=== PATIENT | female | born 1970 | race Caucasian/White ===

== ENCOUNTER → 2016-11-21 | Outpatient (CLI) | payer BC ==
--- NOTE | 2016-11-21 13:59 | MM ---
Reason for exam: screening (asymptomatic). Last mammogram was performed 3 years and 2 months ago. History: Family history of breast cancer in maternal grandmother. Benign cyst aspiration of the left breast, 1989. Took hormonal contraceptives for 10 years beginning at age 18. Physical Findings: A clinical breast exam by your physician is recommended on an annual basis and results should be correlated with mammographic findings. MG Screening Mammo w CAD Bilateral CC and MLO view(s) were taken. Prior study comparison: November 19, 2015, mammogram, performed at [facility]. November 16, 2015, mammogram, performed at [facility]. The breast tissue is heterogeneously dense. This may lower the sensitivity of mammography. There is no discrete abnormality. No significant changes when compared with prior studies. ASSESSMENT: Negative, BI-RAD 1 RECOMMENDATION: Routine screening mammogram of both breasts in 1 year.
== END | disposition home or self-care (01) ==
LOC: RADMAMWWP 08:41
PROVIDERS: ATTEND Obstetrics & Gynecology
DX: Z12.31 Encounter for screening mammogram for malignant neoplasm of breast (principal); Z80.3 Family history of malignant neoplasm of breast

== ENCOUNTER → 2017-12-18 | Outpatient (CLI) | payer BC ==
--- NOTE | 2017-12-20 12:01 | MM ---
Reason for exam: screening (asymptomatic). Last mammogram was performed 1 year and 1 month ago. History: Patient is postmenopausal. Family history of breast cancer in maternal grandmother. Benign cyst aspiration of the left breast, 1989. Took hormonal contraceptives for 10 years beginning at age 18. Physical Findings: A clinical breast exam by your physician is recommended on an annual basis and results should be correlated with mammographic findings. MG 3D Screening Mammo W/Cad Bilateral CC and MLO view(s) were taken. Prior study comparison: November 21, 2016, bilateral MG screening mammo w CAD. November 19, 2015, mammogram, performed at [facility]. The breast tissue is heterogeneously dense. This may lower the sensitivity of mammography. No significant changes when compared with prior studies. ASSESSMENT: Negative, BI-RAD 1 RECOMMENDATION: Routine screening mammogram of both breasts in 1 year.
== END | disposition home or self-care (01) ==
LOC: RADMAMWWP 09:00
PROVIDERS: ATTEND Obstetrics & Gynecology
DX: Z12.31 Encounter for screening mammogram for malignant neoplasm of breast (principal)
CPT/HCPCS: 77063; 77067

== ENCOUNTER → 2019-05-27 | Outpatient (CLI) | payer BC ==
--- NOTE | 2019-05-28 10:57 | MM ---
Reason for exam: screening (asymptomatic). Last mammogram was performed 1 year and 5 months ago. History: Patient is postmenopausal. Benign cyst aspiration of the left breast, 1989. Took hormonal contraceptives for 10 years beginning at age 18. Physical Findings: A clinical breast exam by your physician is recommended on an annual basis and results should be correlated with mammographic findings. MG 3D Screening Mammo W/Cad Bilateral CC and MLO view(s) were taken. Prior study comparison: December 18, 2017, bilateral MG 3d screening mammo w/cad. November 21, 2016, bilateral MG screening mammo w CAD. The breast tissue is heterogeneously dense. This may lower the sensitivity of mammography. No suspicious abnormality. No significant changes when compared with prior studies. ASSESSMENT: Negative, BI-RAD 1 RECOMMENDATION: Routine screening mammogram of both breasts in 1 year.
== END | disposition home or self-care (01) ==
LOC: RADMAMWWP 08:17
PROVIDERS: ATTEND Obstetrics & Gynecology
DX: Z12.31 Encounter for screening mammogram for malignant neoplasm of breast (principal)
CPT/HCPCS: 77063; 77067

== ENCOUNTER → 2020-02-26 | Day surgery (SDC) | payer BC ==
[2020-02-24 13:38] VITALS: BMI 29.8
[~2020-02-26] MED LIST: LACTATED RINGERS 1,000 ML IV ONE; LACTATED RINGERS 1,000 ML IV SCH; LIDOCAINE 1% (10MG/ML) FOR IV START INTRADERMA ONE; PROPOFOL 10 MG/ML 20 ML VIAL IV ONE
[2020-02-26 08:45] VITALS: TEMP 98
--- NOTE | 2020-02-26 09:03 | P.GSHP ---
History of Present Illness H&P Date: 02/26/20 Chief Complaint: Screening colonoscopy This a 50-year-old female who presents today for screening colonoscopy. Patient denies a significant GI complaints. Past Medical History Past Medical History: Hyperlipidemia, Musculoskeletal Disorder, Pneumonia Additional Past Medical History / Comment(s): HERNIATED DISC. HX FX RT ANKLE. History of Any Multi-Drug Resistant Organisms: None Reported Past Surgical History: Back Surgery, Orthopedic Surgery, Uterine Ablation Additional Past Surgical History / Comment(s): EXC WISDOM TEETH. ORIF RT ANKLE. EPIDURAL INJ. LASIK FRANK EYES. 07-28-15 LUMBAR FUSION L4-L5 Past Anesthesia/Blood Transfusion Reactions: No Reported Reaction Additional Past Anesthesia/Blood Transfusion Reaction / Comment(s): ADOPTED, NO KNOWN FAM HX. MILD CLAUSTROPHOBIA Smoking Status: Never smoker - Past Family History Mother Family Medical History: Unable to Obtain Additional Family Medical History / Comment(s): ADOPTED Father History Unknown: Yes Additional Family Medical History / Comment(s): PT WAS ADOPTED. Medications and Allergies Home Medications Medication Instructions Recorded Confirmed Type Ascorbic Acid [Vitamin C] 500 mg PO DAILY 02/24/20 02/24/20 History Cholecalciferol [Vitamin D3 (25 1,000 unit PO DAILY 02/24/20 02/24/20 History Mcg = 1000 Iu)] Multivitamins, Thera [Multivitamin 1 tab PO DAILY 02/24/20 02/24/20 History (formulary)] lisinopriL [Zestril] 20 mg PO DAILY 02/24/20 02/24/20 History Allergies Allergy/AdvReac Type Severity Reaction Status Date / Time No Known Allergies Allergy Verified 02/24/20 13:28 Surgical - Exam Vital Signs Temp Pulse Resp BP Pulse Ox 98.0 F 76 18 170/67 98 02/26/20 08:44 02/26/20 08:44 02/26/20 08:44 02/26/20 08:44 02/26/20 08:44 - General well developed, well nourished, no distress - Eyes PERRL - ENT normal pinna - Neck no masses - Respiratory normal expansion - Cardiovascular Rhythm: regular - Abdomen Abdomen: soft, non tender Assessment and Plan Assessment: We'll perform screening colonoscopy
--- NOTE | 2020-02-26 09:18 | P.OP ---
Date of Procedure: 02/26/20 Preoperative Diagnosis: Screening colonoscopy Postoperative Diagnosis: Normal colonoscopy Procedure(s) Performed: Colonoscopy Surgeon: Adriel Conrad Pathology: none sent Condition: stable Disposition: PACU Description of Procedure: The patient's placed on the endoscopy table in the lateral position. She received IV sedation. Digital rectal exam performed abnormalities. The flexible colonoscope was then placed patient anus and passed throughout the entire colon. The ileocecal valve was incised. The cecum, ascending and transverse colon appeared normal. The descending and sigmoid colon appeared normal. Scope was brought back the rectum and this appeared normal. Scope was withdrawn for patient.
[2020-02-26 09:27] VITALS: RESP 16
[2020-02-26 09:36] VITALS: BP 136/84; PULSE 71
== END ==
LOC: ORWHC2ENDO 08:23
PROVIDERS: ATTEND Surgery
DX: Z12.11 Encounter for screening for malignant neoplasm of colon (principal); I10 Essential (primary) hypertension; E78.5 Hyperlipidemia, unspecified; Z87.01 Personal history of pneumonia (recurrent); Z98.890 Other specified postprocedural states; Z98.818 Other dental procedure status; Z98.41 Cataract extraction status, right eye; Z98.42 Cataract extraction status, left eye; Z98.1 Arthrodesis status; Z79.899 Other long term (current) drug therapy
CPT/HCPCS: 81025; G0121; J2704; 45378

== ENCOUNTER → 2020-09-28 | Outpatient (CLI) | payer BC ==
--- NOTE | 2020-09-28 11:35 | BD ---
EXAMINATION TYPE: Axial Bone Density DATE OF EXAM: 09/28/2020 COMPARISON: NONE CLINICAL HISTORY: Postmenopausal female. Height: 176.1 Weight: 64 FRAX RISK QUESTIONS: Alcohol (3 or more units per day): no Family History (Parent hip fracture): unsure Glucocorticoids (More than 3mos): no (Ex: prednisone, prednisolone, methylprednisolone, dexamethasone, and hydrocortisone). History of Fracture in Adulthood: yes Secondary Osteoporosis: 1. Type 1 Diabetes: no 2. Hyperthyroidism: no 3. Menopause before 45: no 4. Malnutrition: no 5. Chronic liver disease: no Rheumatoid Arthritis: no Current Tobacco Use: no RISK FACTORS HISTORY OF: Surgery to Spine/Hip(right/left)/Wrist (right/left): l spine 2015 Active: yes Diet low in dairy products/other sources of calcium: yes Postmenopausal woman: age 47 Lost more than 2 inches in height since high school: no MEDICATIONS: Additional History: EXAM MEASUREMENTS: Bone mineral densitometry was performed using the [employer] System. Bone mineral density about the R hip (g/cm2): 0.965 Bone mineral density about the L hip (g/cm2): 1.003 T Score values are as follows: -----R Neck: -0.5 -----L Neck: -0.3 -----R Total: 0.2 -----L Total: 0.8 Bone mineral density : baseline Bone mineral density about the L Wrist (g/cm2): 0.631 T Score values are as follows: -----Dist. R+U: -1.2 -----Prox. R+U: -0.1 -----Radius total: -0.7 Bone mineral density : baseline IMPRESSION: Normal (Values between +1 and -1 indicate normal bone mass). Consider repeating this study in 5 year s or sooner if there is some new clinical indication. NOTE: T-SCORE=SD OF THE YOUNG ADULT MEAN.
--- NOTE | 2020-09-29 10:33 | MM ---
Reason for exam: screening (asymptomatic). Last mammogram was performed 1 year and 4 months ago. History: Patient is postmenopausal. Benign cyst aspiration of the left breast, 1989. Took hormonal contraceptives for 10 years beginning at age 18. Physical Findings: A clinical breast exam by your physician is recommended on an annual basis and results should be correlated with mammographic findings. MG 3D Screening Mammo W/Cad Bilateral CC and MLO view(s) were taken. Prior study comparison: May 27, 2019, bilateral MG 3d screening mammo w/cad. December 18, 2017, bilateral MG 3d screening mammo w/cad. There are scattered fibroglandular densities. No significant changes when compared with prior studies. ASSESSMENT: Benign, BI-RAD 2 RECOMMENDATION: Routine screening mammogram of both breasts in 1 year.
== END | disposition home or self-care (01) ==
LOC: RADBDWWP 07:04
PROVIDERS: ATTEND Obstetrics & Gynecology
DX: Z12.31 Encounter for screening mammogram for malignant neoplasm of breast (principal); N95.1 Menopausal and female climacteric states; Z98.890 Other specified postprocedural states
CPT/HCPCS: 77063; 77067; 77080

== ENCOUNTER → 2021-10-24 | Outpatient (CLI) | payer BC ==
--- NOTE | 2021-10-25 20:03 | MM ---
Reason for Exam: Screening (asymptomatic). Last screening mammogram was performed 12 month(s) ago. Patient History: Menarche at age 10. First Full-Term at age 30. Late child-bearing (after 30). Postmenopausal. Hormonal Contraceptives for 10 years from age 18 until age 28. 1990, Benign Cyst Aspiration on the left side. Risk Values: Jenny 5 year model risk: 1.5%. NCI Lifetime model risk: 13.0%. Prior Study Comparison: 12/18/2017 Bilateral Screening Mammogram, [facility]. 05/27/2019 Bilateral Screening Mammogram, [facility]. 09/28/2020 Bilateral Screening Mammogram, [facility]. Tissue Density: There are scattered fibroglandular densities. Findings: Analyzed By CAD. There is no suspicious group of microcalcifications or new suspicious mass in either breast. Overall Assessment: Negative, BI-RAD 1 Management: Screening Mammogram of both breasts in 1 year. 1. Patient should continue monthly self breast exams. 2. A clinical breast exam by your physician is recommended on an annual basis. 3. This exam should not preclude additional follow-up of suspicious palpable abnormalities. Electronically signed and approved by: Adrian Mendoza M.D. Radiologist
== END | disposition home or self-care (01) ==
LOC: RADMAMWWP 08:06
PROVIDERS: ATTEND Family Medicine
DX: Z12.31 Encounter for screening mammogram for malignant neoplasm of breast (principal)
CPT/HCPCS: 77063; 77067

== ENCOUNTER → 2023-04-09 | Outpatient (CLI) | payer BC ==
--- NOTE | 2023-04-10 21:26 | MM ---
Reason for Exam: Screening (asymptomatic). Last mammogram was performed 1 year(s) and 6 month(s) ago. Patient History: Menarche at age 10. First Full-Term at age 30. Late child-bearing (after 30). Postmenopausal. Hormonal Contraceptives for 10 years from age 18 until age 28. 1990, Benign Cyst Aspiration on the left side. Risk Values: Jenny 5 year model risk: 1.7%. NCI Lifetime model risk: 12.6%. Prior Study Comparison: 05/27/2019 Bilateral Screening Mammogram, [facility]. 09/28/2020 Bilateral Screening Mammogram, [facility]. 10/24/2021 Bilateral MG 3D screening mammo w/cad, [facility]. Tissue Density: There are scattered fibroglandular densities. Findings: Analyzed By CAD. There is no suspicious group of microcalcifications or new suspicious mass in either breast. Overall Assessment: Negative, BI-RAD 1 Management: Screening Mammogram of both breasts in 1 year. . Patient should continue monthly self-breast exams. A clinical breast exam by your physician is recommended on an annual basis. This exam should not preclude additional follow-up of suspicious palpable abnormalities. Note on Jenny scores and lifetime risk: 1. A Jenny score greater than 3% is considered moderate risk. If this is the case, consider specialist referral to assess eligibility for a risk reducing agent. 2. If overall lifetime risk for the development of breast cancer is 20% or higher, the patient may qualify for future screening with alternating mammogram and breast MRI. Electronically signed and approved by: Adrian Mendoza M.D. Radiologist
== END | disposition home or self-care (01) ==
LOC: RADMAMWWP 16:39
PROVIDERS: ATTEND Obstetrics & Gynecology
DX: Z12.31 Encounter for screening mammogram for malignant neoplasm of breast (principal); Z78.0 Asymptomatic menopausal state
CPT/HCPCS: 77063; 77067

== ENCOUNTER → 2023-04-24 | Outpatient (CLI) | payer BC ==
[2023-04-24 14:54] LABS: Basophils # (A) 0.04 X 10*3/uL (0.00-0.10); Basophils % (A) 0.8 %; Eosinophils # (A) 0.08 X 10*3/uL (0.04-0.35); Eosinophils % (A) 1.6 %; HCT 43.3 % (37.2-46.3); HGB 14.1 g/dL (12.0-15.0); Lymphocytes # (A) 1.93 X 10*3/uL (0.90-5.00); Lymphocytes % (A) 38.8 %; MCH 28.2 pg (27.0-32.0); MCHC 32.6 g/dL (32.0-37.0); MCV 86.6 FL (80.0-97.0); Mean Platelet Volume 11.1 FL (9.5-12.2); Monocytes # (A) 0.33 X 10*3/uL (0.20-1.00); Monocytes % (A) 6.6 %; NRBC Per 100 WBC 0 X 10*3/uL (0.00-0.01); Neutrophils # (A) 2.57 X 10*3/uL (1.80-7.70); Neutrophils % (A) 51.8 %; Platelet Count 267 X 10*3/uL (140-440); RDW 12.4 % (11.5-14.5); WBC 4.97 X 10*3/uL (4.50-10.00)
== END | disposition home or self-care (01) ==
LOC: LABPAT 10:24
PROVIDERS: ATTEND Obstetrics & Gynecology
DX: Z01.812 Encounter for preprocedural laboratory examination (principal)
CPT/HCPCS: 85025; 93005

== ENCOUNTER 2023-05-03 08:08 | Day surgery (SDC) | payer BC ==
[2023-05-01 13:37] VITALS: BMI 30.9
--- NOTE | 2023-05-02 13:09 | P.HPOB ---
History of Present Illness H&P Date: 05/02/23 Chief Complaint: Postmenopausal bleeding, endometrial thickening This is a 53 y.o. female, 3, para 2, who presents for dilatation and curettage with hysteroscopy due to postmenopausal bleeding and endometrial thickening on ultrasound. She complains of vaginal bleeding and spotting lasting about 4 days that started in January right after she finished an antibiotic for a urinary tract infection. Her ultrasound showed uterus measuring 6.6 x 4.2 x 3.3 cm, inhomogeneous echo with multiple fibroids, largest 2.1 cm and endometrium 0.65 cm, heterogeneous with cystic and calcified areas within. OB Hx: . History of 2 vaginal deliveries and 1 miscarriage. Fleet Service Manager Hx: No history of STDs Social Hx: . 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 with hot flash) Respiratory: Denies cough Gastrointestinal: Denies abdominal pain, Denies diarrhea, Denies nausea, Denies vomiting Genitourinary: Reports abnormal vaginal bleeding, Denies pelvic pain Musculoskeletal: Reports low back pain Integumentary: Denies pruritus, Denies rash Neurological: Reports numbness (R. calf & foot) Psychiatric: Reports irritability, Reports mood swings Endocrine: Reports flushing, Denies fatigue, Denies weight change Past Medical History Past Medical History: Hyperlipidemia, Hypertension, Musculoskeletal Disorder, Pneumonia Additional Past Medical History / Comment(s): HERNIATED DISC. HX FX RT ANKLE., POST MENOPAUSAL BLEEDING History of Any Multi-Drug Resistant Organisms: None Reported Past Surgical History: Back Surgery, Orthopedic Surgery, Uterine Ablation Additional Past Surgical History / Comment(s): EXC WISDOM TEETH. ORIF RT ANKLE. EPIDURAL INJ. LASIK EYE SURGERY, 07-28-15 LUMBAR FUSION L4-L5 Past Anesthesia/Blood Transfusion Reactions: No Reported Reaction Additional Past Anesthesia/Blood Transfusion Reaction / Comment(s): ADOPTED, NO KNOWN FAM HX. MILD CLAUSTROPHOBIA Past Psychological History: No Psychological Hx Reported Additional Psychological History / Comment(s): hx post depression Smoking Status: Never smoker Past Alcohol Use History: Rare Past Drug Use History: None Reported - Past Family History Mother Family Medical History: Unable to Obtain Additional Family Medical History / Comment(s): ADOPTED Father History Unknown: Yes Additional Family Medical History / Comment(s): PT WAS ADOPTED. Medications and Allergies Home Medications Medication Instructions Recorded Confirmed Type lisinopriL [Zestril] 20 mg PO DAILY 02/24/20 05/01/23 History Acetaminophen [Tylenol Extra 500 mg PO DIRECTED PRN 05/01/23 05/01/23 History Strength] Allergies Allergy/AdvReac Type Severity Reaction Status Date / Time No Known Allergies Allergy Verified 05/01/23 13:06 Exam Osteopathic Statement: *. No significant issues noted on an osteopathic structural exam other than those noted in the History and Physical/Consult. HEENT: within normal limits Heart: regular rate and rhythm Lungs: clear to auscultation bilaterally Abdomen: soft, non-tender Pelvic: uterus retroverted, non-tender, no adnexal masses or tenderness Extremities: neg. Rebel's Assessment and Plan (1) Postmenopausal bleeding Current Visit: No Status: Acute Code(s): N95.0 - POSTMENOPAUSAL BLEEDING SNOMED Code(s): 53989813 (2) Endometrial thickening on ultrasound Current Visit: No Status: Acute Code(s): R93.89 - ABNORMAL FINDINGS ON DX IMAGING OF OTH BODY STRUCTURES SNOMED Code(s): 786649953 Plan: Proceed with dilatation and curettage with hysteroscopy. I have discussed the risks, benefits, and alternative therapies for the above- mentioned procedure and for both sedation/anesthesia as well as necessary blood products administration, if indicated, as they pertain to this patient. The patient has indicated her understanding and acceptance of the risks and procedures discussed.
[~2023-05-03 08:08] MED LIST changes: +DEXAMETHASONE SOD PHOSPHATE 4 MG/ML 1 ML VIAL IV ONE; +HYDROmorphone 0.5 MG/0.5 ML SYRINGE IVP PRN; -LACTATED RINGERS 1,000 ML IV ONE; -LIDOCAINE 1% (10MG/ML) FOR IV START INTRADERMA ONE; +MIDAZOLAM 2 MG/2 ML VIAL IV PRN; +ONDANSETRON 4 MG/2 ML VIAL IVP ONE; -PROPOFOL 10 MG/ML 20 ML VIAL IV ONE; +Pre Op ABX Message 1 EACH MISC MISCELLANE ONE; +SCOPOLAMINE 1 MG/72 HR PATCH TRANSDERM ONE
[2023-05-03] MEDS ORDERED: MIDAZOLAM 2 MG/2 ML VIAL IVP ONE (08:53)
[2023-05-03] MEDS ORDERED: PROPOFOL 10 MG/ML 20 ML VIAL IV ONE (08:54)
[2023-05-03] MEDS ORDERED: MIDAZOLAM 2 MG/2 ML VIAL ONE (08:54)
[2023-05-03] MEDS ORDERED: fentaNYL (PF) 50 MCG/ML 2 ML AMP ONE (08:54)
[2023-05-03] MEDS ORDERED: KETAMINE HCL IN 0.9 % NACL 50 MG/5 ML SYRINGE ONE (08:54)
[2023-05-03] MEDS ORDERED: LIDOCAINE 1% INJ 10MG/ML (20 ML MDV) ONE (08:54)
--- NOTE | 2023-05-03 09:31 | P.OP ---
Date of Procedure: 05/03/23 Preoperative Diagnosis: Postmenopausal bleeding Endometrial thickening History of endometrial ablation Postoperative Diagnosis: Same Procedure(s) Performed: Dilation and curettage with hysteroscopy Anesthesia: DELIA Surgeon: Latanya Cabello Estimated Blood Loss (ml): 25 Pathology: other (Endometrial curettings) Condition: stable Disposition: same day Indications for Procedure: This is a 53 y.o. female, 3, para 2, who presents for dilatation and curettage with hysteroscopy due to postmenopausal bleeding and endometrial thickening on ultrasound. She complains of vaginal bleeding and spotting lasting about 4 days that started in January right after she finished an antib iotic for a urinary tract infection. Her ultrasound showed uterus measuring 6.6 x 4.2 x 3.3 cm, inhomogeneous echo with multiple fibroids, largest 2.1 cm and endometrium 0.65 cm, heterogeneous with cystic and calcified areas within. Operative Findings: Uterus is mid to retroverted and sounded to 6 cm. Upon hysteroscopy, a dyssynchronous endometrial pattern is noted. Scant endometrial curettings are obtained. Neither tubal ostia are visualized. Description of Procedure: The patient is taken to the operating room she is placed in the dorsal lithotomy position. She is prepped and draped in the normal sterile fashion. Her bladder is drained with a catheter and then removed. Examination is performed under anesthesia. Uterus is found to be small, mid to retroverted position, and no adnexal masses are palpated. Next a weighted speculum was placed in the patient's vagina and a right angle retractor was used to visualize the cervix. The anterior lip of the cervix is grasped with a long Allis clamp. Next the cervix is gently dilated with Diaz dilators until a sound could be placed. Uterus was sounded to 6 cm. The cervical os was noted to be slightly stenotic due to her previous ablation. When she was dilated adequately, hysteroscopy was performed using normal saline. It was difficult to visualize but it didn't appear to have a dyssynchronous endometrial pattern. Neither tubal ostia was seen. There was some breakdown of tissue noted. Next the hysteroscope was removed and the cervix was gently dilated further. A small sharp curette was placed and sharp curettage was performed until a gritty texture was noted. Very scant tissue was obtained. The specimen was removed from the field and then the Allis clamp was removed from the anterior lip of the cervix. Initially there was some bright red bleeding but pressure was applied and uterus was massaged bimanually. Weighted speculum was replaced and no active bleeding was visualized. All instruments are removed from the vagina. All sponge and needle counts are correct. The patient is then taken to recovery room in stable condition.
[2023-05-03 09:52] VITALS: TEMP 97.8
[2023-05-03 11:03] VITALS: RESP 18
[2023-05-03 11:50] VITALS: BP 155/90; PULSE 72
== END 2023-05-03 11:38 | disposition home or self-care (01) ==
LOC: OR 08:08
PROVIDERS: ATTEND Obstetrics & Gynecology
DX: N95.0 Postmenopausal bleeding (principal); R93.89 Abnormal findings on diagnostic imaging of other specified body structures; D25.9 Leiomyoma of uterus, unspecified; F40.240 Claustrophobia; I10 Essential (primary) hypertension; E78.5 Hyperlipidemia, unspecified; Z87.440 Personal history of urinary (tract) infections; Z79.899 Other long term (current) drug therapy
CPT/HCPCS: 81025; 88305; 58558; J2250; J1100; J2405; J2001; J3010; J2704

== ENCOUNTER → 2024-08-18 | Outpatient (CLI) | payer BC ==
--- NOTE | 2024-08-18 12:35 | MM ---
Reason for Exam: Screening (asymptomatic). Last mammogram was performed 1 year(s) and 4 month(s) ago. Patient History: Menarche at age 10. First Full-Term at age 30. Late child-bearing (after 30). Postmenopausal. Hormonal Contraceptives for 10 years from age 18 until age 28. 1990, Benign Cyst Aspiration on the left side. Risk Values: Jenny 5 year model risk: 1.7%. NCI Lifetime model risk: 12.4%. Prior Study Comparison: 09/28/2020 Bilateral Screening Mammogram, [facility]. 10/24/2021 Bilateral MG 3D screening mammo w/cad, [facility]. 04/09/2023 Bilateral MG 3D screening mammo w/cad, [facility]. Tissue Density: The breasts are heterogeneously dense, which may obscure small masses. Findings: Analyzed By CAD. There is no suspicious group of microcalcifications or new suspicious mass in either breast. Overall Assessment: Negative, BI-RAD 1 Management: Screening Mammogram of both breasts in 1 year. . Patient should continue monthly self-breast exams. A clinical breast exam by your physician is recommended on an annual basis. This exam should not preclude additional follow-up of suspicious palpable abnormalities. Note on Jenny scores and lifetime risk: 1. A Jenny score greater than 3% is considered moderate risk. If this is the case, consider specialist referral to assess eligibility for a risk reducing agent. 2. If overall lifetime risk for the development of breast cancer is 20% or higher, the patient may qualify for future screening with alternating mammogram and breast MRI. [facility], , 08/18/2024 12:33 PM. Electronically signed and approved by: Josef Palomino M.D. Radiologis
== END | disposition home or self-care (01) ==
LOC: RADMAMWWP 11:21
PROVIDERS: ATTEND Family Medicine
DX: Z12.31 Encounter for screening mammogram for malignant neoplasm of breast (principal); R92.333 Mammographic heterogeneous density, bilateral breasts; Z78.0 Asymptomatic menopausal state; Z92.0 Personal history of contraception
CPT/HCPCS: 77063; 77067